=== PATIENT | female | born 2000 | race Two or more races ===

== ENCOUNTER 2024-12-04 14:16 | Inpatient (IN) | payer MEDICAID, SELFPAY ==
[2024-12-04] VITALS (76 sets, daily range): BP systolic 110–131; BP diastolic 60–82; PULSE 76–117; RESP 18–99; TEMP 36.7–36.8; O2SAT 90–100; BMI 27.5
[2024-12-04 15:46] LABS: Basophils % (Auto) 1 % (0-2.5); Eosinophils % (Auto) 0 % (0-10); Hematocrit 32.8 % (36.0-46.0); Hemoglobin 11.6 g/dL (12.0-16.0); Immature Granulocytes % (Auto) 0 % (0-0); Immature Granulocytes Auto 0.03 Thou/mm3 (0.00-0.00); Lymphocytes # (Auto) 1.7 Thou/mm3 (1.0-4.8); Lymphocytes % (Auto) 20 % (10-50); Mean Corpuscular HGB Conc 35.4 g/dl (31.0-37.0); Mean Corpuscular Hemoglobin 29.6 pg (25.0-35.0); Mean Corpuscular Volume 84 fL (80-100); Monocytes # (Auto) 0.5 Thou/mm3 (0.0-0.8); Monocytes % (Auto) 6 % (0-12); Neutrophils # (Auto) 6.1 Thou/mm3 (1.8-7.7); Neutrophils % (Auto) 73 % (37-80); Nucleated Red Blood Cell % 0 /100 WBC (0); Platelet Count 179 Thou/mm3 (140-440); RDW Standard Deviation 39.2 fL (36.4-46.3); Red Blood Count 3.92 Miln/mm3 (4.00-5.20); White Blood Count 8.4 Thou/mm3 (3.6-11.0)
[2024-12-04 16:27] LABS: Syphilis Nonreactive (Nonreactive)
[2024-12-04] MEDS: MISOPROSTOL 50 mCg TABLET PO (16:46)
--- NOTE | 2024-12-04 17:36 | PD.LDHP ---
Documentation for date of: 12/04/24 OB Labor/Induct. HPI History of Present Illness Chief complaint: leakage of fluid 1315 clear : 3 Para: 1 Term pregnancies: 0 pregnancies: 0 Living children: 0 History of Abortions: Spontaneous and Elective: 1 History of Vaginal deliveries: 1 History of sections: No History of : No DONOVAN: 12/16/24 Gestational Age (weeks): 38 Gestational Age (days): 2 History of present illness: Patient presents for loss of fluid, clear, that occurred at 1315 with subsequent leaking. No regular/painful ctx. No vaginal bleeding. Normal movement. No fevers/chills. Comments: Term uncomplicated 05/2023 Received Rhogam at appropriate time interval History of Present Adequate Care: Yes Obstetrical complications: none Labs Maternal Blood Type: B Neg Labs: Negative: RPR, Hepatitis B, HIV and Group Beta Strep Review of Systems Review of Systems Narrative Review of Systems: Review of Systems Systems Reviewed: All systems reviewed, normal except as documented Constitutional Constitutional: Denies body ache(s), Denies chills, Denies fever(s) and Denies headache(s) ENT Ears, Nose, Mouth, and Throat: Denies headache(s) and Denies vertigo Cardiovascular Cardiovascular: Denies chest pain, Denies palpitations, Denies dyspnea and Denies syncope Respiratory Respiratory: Denies cough, Denies dyspnea Gastrointestinal Gastrointestinal: Denies nausea and Denies vomiting Neurologic Neurologic: Denies convulsions, Denies headache(s), Denies other visual disturbances, Denies syncope and Denies vertigo Past Medical History Surgical History SURGICAL: Negative Section OTHER SURGICAL HX: denies Past Medical History Comments PMH COMMENT: Benign PMhx. Meds Home Medications and Allergies Home Medications ?Medication ?Instructions ?Recorded ?Confirmed ?Type prenat.vits,laurie,vag-iapa-fjjpy 1 tab PO QDAY 06/15/23 12/04/24 History Allergies Allergy/AdvReac Type Severity Reaction Status Date / Time No Known Allergies Allergy Verified 12/04/24 15:14 OB Exam Physical Exam Vital signs: Temp Pulse Resp BP Pulse Ox 98.2 F 96 18 114/78 96 12/04/24 16:47 12/04/24 15:17 12/04/24 16:47 12/04/24 15:17 12/04/24 17:34 Narrative: General: well developed, well nourished, no acute distress, conversant Cardiac: normal heart rate Lungs: breathing without distress Abdomen: soft, gravid, non-tender, no rebound or guarding Extremities: no pain with palpation of calves Gross leakage of fluid on vaginal exam in triage per RN Detailed Labor and Delivery Exam Dilation (cm): 1 Effacement (%): 60 Cervix position: posterior station: -3 Consistency: medium Presentation: Vertex Membranes: ruptured Amniotic fluid: clear monitor accelerations: 15x15 monitor decelerations: None intermodal truck driver variability: Moderate (11-25) Contraction frequency (min): irregular OB Results Labs 12/04/24 14:50 Labs: Short CBC 12/04/24 Range/Units 14:50 WBC 8.4 (3.6-11.0) Thou/mm3 Hgb 11.6 L (12.0-16.0) g/dL Hct 32.8 L (36.0-46.0) % Plt Count 179 (140-440) Thou/mm3 OB Assessment & Plan Assessment and Plan (1) PROM (premature rupture of membranes): Status: Acute Assessment and plan: Patient is a 24yo with SIUP at 38&2wk with PROM, clear, 1315 on 12/04. Not in labor. SCE: /-3, posterior. Grossly ruptured. Irregular ctx. Vitals wnl, benign exam. Reassuring assessment. PMhx/ complicated by: Negative maternal blood type, received Rhogam at appropriate time interval SMA testing: at risk to be a carrier Normal NIPT No records from clinic available to review at time of admission (other than labs). Plan: -Admit to L&D -Establish IV, routine labs -CEFM -Regular diet avzz-vs-qlyu, clear liquids in labor -Cytotec 50mcg PO Q4hr until good ctx pattern/progression in labor -Occupational Rehabilitation Aide/consent re: augmentation and -GBS status: negative -Anticipate -Will obtain records when office is open -Safe to proceed (1) PROM (premature rupture of membranes) Qualifiers: PROM gestational age: full term PROM onset of labor timing: unspecified duration between rupture of membranes and onset of labor Qualified Code(s): O42.92 - Full-term premature rupture of membranes, unspecified as to length of time between rupture and onset of labor
[2024-12-04] MEDS: RINGERS LACTATED 1000 ML 1,000 ML 999 ML IV ×2 (19:28→20:30)
[2024-12-04] MEDS: MINERAL OIL 30 ML UDC TOP (20:53)
[2024-12-04] MEDS: OXYTOCIN in NS 20 units 20 UNIT/1,000 ML BAG 999 UNIT IV (20:59)
[2024-12-04] MEDS: BENZOCAINE/BENZETHON (Dermoplast First Aid Spray) 78 GM CAN 1 SPRAY TOP (21:09)
--- NOTE | 2024-12-04 22:03 | PD.LDDELS ---
Data ([facility]) Data Hx Section: No : 3 Para: 1 Term: 1 : 0 : 0 Delivery Data ([facility]) Labor Data ROM Date: 12/04/24 ROM Time: 13:15 Rupture Type: SROM Amniotic Fluid: Clear Delivery Data Labor Onset Stage 1 Date: 12/04/24 Labor Onset Stage 1 Time: 13:15 Labor Onset Stage 2 Date: 12/04/24 Labor Onset Stage 2 Time: 20:44 Delivery Date: 12/04/24 Delivery Time: 20:55 Placenta Delivery Date: 12/04/24 Placenta Delivery Time: 21:00 Delivered by: Katy Cook Delivery nurse: Annmarie Dixon Other staff at delivery: 2nd Nurse Other staff at delivery: Wilda Gomes Delivery Method Delivery: Vaginal Delivery Type: Spontaneous Presentation: Vertex Anesthesia Type Primary Anesthesia: None Secondary Anesthesia: None Placenta Placenta Delivery: Spontaneous EBL Estimated blood loss (ml): 150 Umbilical Cord Umbilical Vessels: 3 Additional Procedures Skylar is a 24yo [id number] s/p uncomplicated at 38&2wk after presenting with PROM, delivering at 2054 on 12/04/2024. On presentation, SCE was 1/60/-2. She received one dose of oral cytotec and progressed to C/C/0 at which point she began pushing. She did not receive an epidural. With good maternal pushing efforts, 's head delivered OA and restituted DUC. Right anterior shoulder delivered easily followed by posterior shoulder and corpus. Infant had spontaneous cry and was vigorous. Apgars 9/9. Infant placed on maternal abdomen where nose/mouth were suctioned and infant dried/stimulated. After approximately 1 minute, cord was clamped x2 and cut by FOB. Cord blood collected for typing. With fundal massage and cord traction, placenta delivered spontaneously and intact with 3 vessel centrally inserted cord. Fundal massage performed and IV pitocin given per protocol with fundus then firm at u-2cm and hemostasis noted. Inspection of perineum and vagina revealed superficial right labial laceration and a very small 1st degree vaginal laceration which were repaired with 2 single sutures of 4-0 vicryl- total reapproximation and hemostasis achieved. All counts correct x2. Mom and were doing well when I left the room. Katy Cook MD Complications Complications: none [place] Data ([facility]) [place] Data Gender: Female Weight Grams: 2865 1 Minute Total: 9 5 Minute Total: 9
[2024-12-04] MEDS: TRANEXAMIC ACID 1,000 MG IVPB 1,000 MG/100 ML BAG 200 MG IV (22:35)
[2024-12-04] MEDS: IBUPROFEN TAB 400 MG TABLET 800 MG PO (23:41)
[2024-12-05] VITALS (7 sets, daily range): BP systolic 104–130; BP diastolic 64–86; PULSE 66–82; RESP 16–20; TEMP 36.6–37.1; O2SAT 95–99
[2024-12-05 06:23] LABS: Basophils % (Auto) 0 % (0-2.5); Eosinophils % (Auto) 0 % (0-10); Hematocrit 33.3 % (36.0-46.0); Hemoglobin 11.6 g/dL (12.0-16.0); Immature Granulocytes % (Auto) 0 % (0-0); Immature Granulocytes Auto 0.04 Thou/mm3 (0.00-0.00); Lymphocytes # (Auto) 1.8 Thou/mm3 (1.0-4.8); Lymphocytes % (Auto) 14 % (10-50); Mean Corpuscular HGB Conc 34.8 g/dl (31.0-37.0); Mean Corpuscular Hemoglobin 29.4 pg (25.0-35.0); Mean Corpuscular Volume 84 fL (80-100); Monocytes # (Auto) 0.7 Thou/mm3 (0.0-0.8); Monocytes % (Auto) 6 % (0-12); Neutrophils # (Auto) 9.8 Thou/mm3 (1.8-7.7); Neutrophils % (Auto) 80 % (37-80); Nucleated Red Blood Cell % 0 /100 WBC (0); Platelet Count 161 Thou/mm3 (140-440); RDW Standard Deviation 38.9 fL (36.4-46.3); Red Blood Count 3.95 Miln/mm3 (4.00-5.20); White Blood Count 12.4 Thou/mm3 (3.6-11.0)
[2024-12-05] MEDS: DOCUSATE SOD 100 MG CAPSULE PO (08:49)
[2024-12-05] MEDS: PRENATAL VITAMIN/FE FUM/FA TABLET 1 TAB PO (08:49)
--- NOTE | 2024-12-05 11:39 | PD.LDDS ---
DS: Providers Provider Date of admission: 12/04/24 14:55 Primary care physician: Alan Kumar MD Admitting Provider: Katy Cook MD Attending Provider on Admission: Katy Cook MD Consults: 12/04/24 22:01 Referral Routine Comment: Attending Provider on DC: Katy Cook MD Discharging Provider: Katy Cook MD DS: Diagnosis Discharge Diagnosis (1) PROM (premature rupture of membranes): Status: Acute (2) care and examination immediately after delivery: Status: Acute Problem List Completed Was Problem List Reviewed/Reconciled?: Yes Summary/Hosp Course Brief History: Patient presents for loss of fluid, clear, that occurred at 1315 with subsequent leaking. No regular/painful ctx. No vaginal bleeding. Normal movement. No fevers/chills. She is doing well PPD1 s/p uncomplicated . She has had an uncomplicated course, meeting all milestones and feels ready for discharge home. She is ambulating without lightheadedness, tolerating regular diet no n/v, spontaneously voiding without issue. She has no chest pain or shortness of breath. No fevers or chills. Minimal, appropriate discomfort. Vitals normal, benign exam. Hemodynamically stable with no evidence of infection. PP Hgb 11.6. Status at Discharge Functional status at discharge: independent ambulation Overall status at discharge: patient is back to baseline Time Spent with Patient Time attestation: Total time spent providing and/or coordinating discharge services: Exam Vital Signs Temp Pulse Resp BP Pulse Ox O2 Del Method 98.1 F 80 17 107/69 97 Room Air 12/05/24 07:50 12/05/24 07:50 12/05/24 07:50 12/05/24 07:50 12/05/24 07:50 12/05/24 07:50 Narrative Exam General: well developed, well nourished, no acute distress, conversant Cardiac: normal heart rate Lungs: breathing without distress Abdomen: soft, post-gravid, non-tender, no rebound or guarding, Fundus firm at u-3cm. Extremities: no pain with palpation of calves, trace edema of BLE Discharge Plan Plan Patient Disposition: HOME (Self Care) Patient condition on transfer: Stable Prescriptions/Referrals Prescriptions/Med Rec: New docusate sodium 100 mg Capsule 100 mg PO BID 5 Days Qty: 10 0RF ibuprofen 800 mg tablet 800 mg PO Q8H PRN (Reason: See Comments) 10 Days Qty: 30 0RF Continued prenat.vits,laurie,mxr-ubmg-shcsv Tablet 1 tab PO QDAY Referrals: Alan Kumar MD [Primary Care Provider] - Patient/Caregiver Discharge Instructions Discharge Activity: activity as tolerated Other Discharge Activity Instructions:: vaginal rest and no heavy lifting more than 10 pounds for 6 weeks. Other Discharge Diet Instructions: Regular Education Materials: After a Vaginal Print Language: Kiswahili Activity Restrictions/Additional Instructions: Follow up in 4 weeks for visit, call office to schedule appointment Stand Alone Forms: [employer] Info., Patient Portal Info Letter Discharge Order Discharge Orders: Discharge (Routine); Ordered 12/05/24 Ordered By: Katy Cook Planned Discharge Date 12/05/24 (1) PROM (premature rupture of membranes) Qualifiers: PROM onset of labor timing: unspecified duration between rupture of membranes and onset of labor PROM gestational age: full term Qualified Code(s): O42.92 - Full-term premature rupture of membranes, unspecified as to length of time between rupture and onset of labor
[2024-12-05] MEDS: IBUPROFEN TAB 400 MG TABLET 800 MG PO (16:05)
== END 2024-12-05 20:57 | disposition home or self-care (01) | DRG 560 ==
LOC: S4SX 21:12 → S4NX 22:50
PROVIDERS: Admitting Provider Obstetrics & Gynecology; PCP Family Medicine; Visit Provider Obstetrics & Gynecology
DX: O42.02 Full-term premature rupture of membranes, onset of labor within 24 hours of rupture (principal); O70.0 First degree perineal laceration during delivery; Z3A.38 38 weeks gestation of pregnancy; Z37.0 Single live birth
CPT/HCPCS: 36415; 59025; 59409; 84112; 85025; 85461; 86780; 86850; 86870; 86900; 86901; 94762; A9270; J2590; J2790; J3490; J7120

== ENCOUNTER 2024-12-11 20:16 | Inpatient (IN) | payer MEDICAID, SELFPAY ==
[2024-12-11 20:17] VITALS: BMI 35.2
--- NOTE | 2024-12-11 20:30 | EKG_ITS ---
[facility] Test Date: 2024-12-11 Pat Name: FAROOQ ANGUIANO Department: Room: - Gender: Female Hog Cutter: : 2000 Requested By: Sarah Black Order Number: [id number] Reading MD: Sarah Black Measurements Intervals [place] Rate: 71 P: 30 ME: 144 QRS: -7 QRSD: 77 T: 15 QT: 351 QTc: 382 Interpretive Statements SINUS RHYTHM POSSIBLE ANTERIOR MYOCARDIAL INFARCTION , PROBABLY OLD [30 ms Q WAVE IN V3/V4, OR R < 0.2 mV IN V4] No previous ECG available for comparison /store/S0/[id number]/ecg/[id number].pdf
--- NOTE | 2024-12-11 20:30 | XR_ITS ---
Examination: AP chest single view Technique one AP portable upright chest single view Exam date and time: December 11, 20242034 hrs. Indications: Onset chest pain today. The Findings: Normal heart size The lungs are clear. The osseous structures are intact Impression: No active disease
[2024-12-11 20:34] VITALS: BP 134/107; PULSE 69; RESP 18; TEMP 37.1; O2SAT 97
--- NOTE | 2024-12-11 20:35 | PD.EDPREG ---
ED OB Contraction Preg RMI/HPI General Chief complaint: OB/Uterine Contractions Stated complaint: 7 days post , abdominal pain, chills, Time Seen by Provider: 12/11/24 20:21 Source: patient Arrival date/time: 12/11/24 20:16 Mode of arrival: ambulatory Limitations: no limitations RME / HPI RME / HPI Narrative: DR NEVAREZ MAIN ED EVALUATION: 24-year-old female who presents to the emergency department seven days after giving . She reports experiencing chills, pelvic cramping pain, and vaginal bleeding. States the vaginal bleeding is similar to a heavy period. Denies vaginal discharge or malodor. The patient denies having any headaches. Related Data Home Medications ?Medication ?Instructions ?Recorded ?Confirmed prenat.vits,laurie,mip-bhlr-yfivi 1 tab PO QDAY 06/15/23 12/04/24 Previous Rx's ?Medication ?Instructions ?Recorded ibuprofen 800 mg tablet 800 mg PO Q8H PRN See Comments 10 12/05/24 days #30 tabs Allergies Allergy/AdvReac Type Severity Reaction Status Date / Time No Known Allergies Allergy Verified 12/04/24 15:14 Review of Systems Review of Systems Systems Reviewed: All systems reviewed, normal except as documented Past Medical History Past Medical History NEUROLOGIC: Negative Neurological Disorders or Seizures CARDIAC: Negative Cardiac Disorders or Congestive Heart Failure RESPIRATORY: Negative Chronic Obstructive Pulmonary Disease (COPD) or Asthma GASTROINTESTINAL: Negative Gastrointestinal Disorders GENITOURINARY: Negative Genitourinary Disorders or Renal Disease MUSCULOSKELETAL: Negative Musculoskeletal Disorders or Scoliosis ENDOCRINE: Negative Endocrine Disorders, Diabetes Mellitus Type 1 or Diabetes Mellitus Type 2 HEMATOLOGIC: Negative Blood Disorders OTHER HISTORY: Negative Hospitalization, Autoimmune Disease, Blood Transfusions, Blood Transfusion Reaction, Anesthesia Reactions, Organ Transplant, MRSA or Cancer Family History FAMILY HISTORY: Negative Family Psychiatric Problems, Family Respiratory Disorders, Family Cardiac Disorders, Family Gastrointestinal Problems, Family Cancer, Family Surgery or Family Anesthesia Reaction Surgical History SURGICAL: Negative Cardiac Surgery, Endocrine Surgery, Ear Surgery, Abdominal Surgery, Nephrectomy, Joint Replacement, Neurologic Surgery, Brain Shunt, Mastectomy, Section or Organ Transplant Social History SMOKING STATUS: Never smoker SECOND HAND EXPOSURE: No ED Exam Narrative Physical exam: GENERAL APPEARANCE: alert and oriented x 4, well-developed, well-nourished, no acute distress VITALS: All vitals were reviewed and the pulse ox is 97% on room air, which is normal according to my interpretation. HEENT: Normocephalic, atraumatic; pupils equal, round, reactive to light; EOMI; mucous membranes pink, moist; oropharynx clear NECK: Supple LUNGS: CTABL; no wheezes, no rales, no rhonchi HEART: Regular rate, regular rhythm; normal S1, S2; no murmurs ABDOMEN: non distended; normal BS; soft, mild tenderness, no guarding, no rebound; no masses, no organomegaly, no hernia BACK: no CVA tenderness EXTREMITIES: atraumatic; no edema NEUROLOGIC: awake; alert and oriented x4; cranial nerves II-XII grossly intact; no focal sensory or motor deficits PSYCHIATRIC: appropriate mood and affect SKIN: warm, dry, normal color; no rashes General Limitations: Present no limitations Course Course Course Narrative: 2020 Sepsis alert initiated. Orders made at this time are congruent with ED Adult Sepsis Order List. Re-evaluation is to be completed. 2053 Sepsis reassessment performed consisting of lab review, vitals, physical exam including auscultation of heart, lungs, and visual evaluation of capillary refills, mucosal membranes and extremities. CXR is ordered for determining etiology of chest pain. Quality Measures Current suspected stage: sepsis Possible source: GI tract/intra-abdominal Blood cultures ordered: yes Antibiotic ordered: Yes Pertinent labs: 12/11/24 20:41 Lactic Acid 1.0 mMol/L (0.4-2.0) Procalcitonin < 0.04 ng/ml (0.0-0.49) sepsis Orders Category Date Time Status Bedside COVID-19 Antigen Test NOW Care 12/11/24 20:32 Active Bedside Influenza A&B Antigen Test NOW Care 12/11/24 20:32 Completed Invoice Clerk NOW Care 12/11/24 20:30 Active EKG (ED ONLY) *Do not use* NOW Care 12/11/24 20:30 Completed EKG (ED Only) Stat Exams 12/11/24 20:30 Draft US pelvic comp SEPSIS PROTOCOL Stat Exams 12/11/24 21:01 Completed XR chest 1V portable Stat Exams 12/11/24 20:30 Completed Blood Culture (Lab) Stat Lab 12/11/24 20:41 Received CBC Stat Lab 12/11/24 20:41 Completed Comprehensive Metabolic Panel Stat Lab 12/11/24 20:41 Completed Lactate (Lactic Acid) Stat Lab 12/11/24 20:41 Completed Lipase Stat Lab 12/11/24 20:41 Completed Magnesium Stat Lab 12/11/24 20:41 Completed Partial Thromboplastin Time Stat Lab 12/11/24 20:41 Completed Procalcitonin Stat Lab 12/11/24 20:41 Completed Prothrombin Time with INR Stat Lab 12/11/24 20:41 Completed Troponin I Stat Lab 12/11/24 20:41 Completed Urinalysis Stat Lab 12/11/24 21:05 Completed Urine Culture Stat Lab 12/11/24 21:05 Received Ampicillin/Sulbac Inj [Unasyn Inj] 3 gm Med 12/11/24 21:40 Discontinued Sodium Chloride 0.9% (Pop) [NS 0.9% mini bag] 100 ml IV X1 Vital Signs Vital signs: Vital Signs Temperature 98.8 F 12/11/24 20:34 Pulse Rate 69 12/11/24 20:34 Respiratory Rate 18 12/11/24 20:34 Blood Pressure 134/107 H 12/11/24 20:34 Pulse Oximetry (%) 97 12/11/24 20:34 Oxygen Delivery Method Room Air 12/11/24 20:34 Procedures -ED Procedure Comment EKG manual reading, 12/11/242047, my interpretation: sinus rhythm, rate: 71 bpm, no ST elevation, no acute ischemic changes, interpreted as normal OB/Uterine Contractions MDM Narrative MDM Narrative:: Scribe Attestation: I, Katarina Hdez, am scribing for and in the presence of Dr. Nevarez. Provider Notation: Although this document has been carefully reviewed, there may still be some phonetic and other typographical errors. These errors are purely grammatical due to imperfections in the software program and should not be construed in any way to compromise the substance of the patient's medical care during this visit. Patient data External records reviewed:: [facility] previous records Clinical information provided by:: patient Social determinants that could affect healthcare access:: none Patient has the following chronic illnesses:: see PMH How is presenting disease/condition affected by chronic disease/condition?: uneffected by Evaluation data The following diagnostics were reviewed and interpreted by me:: lab results, radiology exam(s) and EKG tracing(s) Lab and/or radiology exams considered but not ordered:: na Interpretation Summary: Examination: AP chest single view Technique one AP portable upright chest single view Exam date and time: December 11, 2024 2035 hrs. Indications: Onset chest pain today. The Findings: Normal heart size The lungs are clear. The osseous structures are intact Impression: No active disease Dictated By: Royer Fry MD ======= Examination: Pelvic sonography complete Technique: Grayscale sonographic images pelvis Exam date and time: December 11, 2024 at 0946 hrs. Indications: Pelvic pain beginning one week, 7 days Findings: Uterus 13.3 x 8.2 x 9.3 cm Thickened endometrium with fluid in cervix, retained products of conception appearance Ovary on the right obscured by bowel gas Left ovary 2.0 cm arterial flow Impression: Positive for retained products of conception Dictated By: Royer Fry MD Medications / Prescriptions Medications or Prescriptions considered but not ordered:: na Medication administrations:: Medication Administration History Acetaminophen (Acetaminophen 325 Mg Tablet) 650 mg PO Q6H PRN PRN Reason: Fever > 100.4 Stop: 01/10/25 23:44 Ampicillin Sodium/Sulbactam (Sodium 3 gm/ Sodium Chloride) 100 mls @ 200 mls/hr IV Q6H FOR[facility], 1928–1983 Stop: 12/19/24 05:59 Oxytocin/Sodium Chloride (Pitocin 20 Units In Ns) 20 unit in 1,000 mls @ 125 mls/hr IV .Q8H FOR[facility], 1928–1983 Stop: 01/11/25 04:14 Last Admin: 12/12/24 04:18 Dose: 125 mls/hr Documented By: AM Co-signed By: ANITA Ketorolac Tromethamine (Ketorolac Inj 30 Mg/Ml Vial) 30 mg IVP Q6H PRN PRN Reason: PAIN SCALE 4-6 (Moderate Stop: 12/16/24 23:44 Ondansetron HCl (Ondansetron Inj 2 Mg/Ml Inj 2 Ml) 4 mg IV Q6H PRN; Protocol PRN Reason: NAUSEA OR VOMITING Stop: 01/10/25 23:46 Discontinued Medications Ampicillin Sodium/Sulbactam (Sodium 3 gm/ Sodium Chloride) 100 mls @ 200 mls/hr IV X1 ONE Stop: 12/11/24 21:41 Last Infusion: 12/11/24 22:49 Dose: Infused Documented By: Admin: 12/11/24 22:19 Dose: 200 mls/hr Documented By: RODO Oxytocin (Pitocin 20 Units In Lr) 20 unit in 1,000 mls @ 125 mls/hr IV .Q8H [facility], 1928–1983 Stop: 01/10/25 23:55 as above Consultations Consultation(s) initiated? (list below): Yes Consultation #1 (Physician, Specialty, Details): OB on-call, hospitalist, made aware of the patient?s HPI, PMHx, lab and/or radiology results. Treatment plan was discussed. Accepts patient for admission. Time: 23:22 Diagnosis OB Contractions Differential Diagnosis: normal delivery at term, hemorrhage and other (Endometritis) Most likely diagnosis given after review of the tests above:: Retained products of conception Admission Indicated Admission indicated?: indicated Explain why admission is indicated or not indicated:: retained products of conception Admission Request Was there a request for admission?: Yes Admission Attestation Admission request attestation: Discussed case with [] from Hospitalist service regarding admission. Discussed patients ED course, exam findings, labs, and radiology results. The Hospitalist [agrees,declines] to accept the patient for admission. Disposition Plan Disposition Plan: Admit Critical Care Time Critical Care Time Critical Care Time: Yes Total Critical Care Time (min.): 35 Attestation: The high probability of sudden, clinically significant deterioration in the patient?s condition required the highest level of my preparedness to intervene urgently. ? The services I provided to this patient were to treat and/or prevent clinically significant deterioration. Services included the following: chart data review, reviewing nursing notes and/or old charts, documentation time, reimbursement consultant collaboration regarding findings and treatment options, medication orders and management, direct patient care, vital sign assessments and ordering, interpreting and reviewing diagnostic studies and lab tests. ? Aggregate critical care time includes only time during which I was engaged in work directly related to the patient?s care, as described above, whether at bedside or elsewhere in the Emergency Department. It did not include time spent performing other reported procedures or the services of residents, students, nurses or physician assistants. Discharge Plan Plan Patient Disposition: Admit Acute Care w/in Hospital Problem List Clinical Impression: Retained products of conception, , care and examination immediately after delivery, Sepsis
[2024-12-11 20:42] VITALS: PULSE 74
[2024-12-11 20:49] VITALS: BP 153/102; PULSE 72; RESP 19; TEMP 37.1; O2SAT 97
--- NOTE | 2024-12-11 20:55 | PC.NURSE ---
Charge nurse Nikki from OB in to assess pt at this time. Goyo Jordan also on phone with OB DR Rocha making him aware pt is in Er. Rn provided pt with plan of care orders from Er physician Brandon. Er will update provider if needed with results.
--- NOTE | 2024-12-11 21:01 | XR_ITS ---
Examination: Pelvic sonography complete Technique: Grayscale sonographic images pelvis Exam date and time: December 11, 2024 at 0946 hrs. Indications: Pelvic pain beginning one week, 7 days Findings: Uterus 13.3 x 8.2 x 9.3 cm Thickened endometrium with fluid in cervix, retained products of conception appearance Ovary on the right obscured by bowel gas Left ovary 2.0 cm arterial flow Impression: Positive for retained products of conception
[2024-12-11 21:03] LABS: Basophils # (Auto) 0.1 Thou/mm3 (0.0-0.2); Basophils % (Auto) 1 % (0-2.5); Eosinophils # (Auto) 0.1 Thou/mm3 (0.0-0.5); Eosinophils % (Auto) 1 % (0-10); Hematocrit 41.5 % (36.0-46.0); Hemoglobin 14.4 g/dL (12.0-16.0); Immature Granulocytes % (Auto) 0 % (0-0); Immature Granulocytes Auto 0.01 Thou/mm3 (0.00-0.00); Lymphocytes # (Auto) 3.1 Thou/mm3 (1.0-4.8); Lymphocytes % (Auto) 42 % (10-50); Mean Corpuscular HGB Conc 34.7 g/dl (31.0-37.0); Mean Corpuscular Hemoglobin 29.3 pg (25.0-35.0); Mean Corpuscular Volume 84 fL (80-100); Monocytes # (Auto) 0.4 Thou/mm3 (0.0-0.8); Monocytes % (Auto) 6 % (0-12); Neutrophils # (Auto) 3.7 Thou/mm3 (1.8-7.7); Neutrophils % (Auto) 50 % (37-80); Nucleated Red Blood Cell % 0 /100 WBC (0); Platelet Count 213 Thou/mm3 (140-440); RDW Standard Deviation 39.9 fL (36.4-46.3); Red Blood Count 4.92 Miln/mm3 (4.00-5.20); White Blood Count 7.4 Thou/mm3 (3.6-11.0)
[2024-12-11 21:11] LABS: Partial Thromboplastin Time 31.3 Seconds (22.0-36.0); Prothrombin Time 10.7 Seconds (9.0-12.2)
[2024-12-11 21:15] LABS: Collection Type, Urine Clean Catch
[2024-12-11 21:19] LABS: Alanine Aminotransferase 11 U/L (10-49); Albumin, Serum 4.8 gm/dL (3.5-5.0); Albumin/Globulin Ratio 1.8 (1.2-2.2); Alkaline Phosphatase 96 U/L (46-116); Anion Gap 9 (7-16); Aspartate Amino Transferase 16 U/L (0-34); BUN/Creatinine Ratio 13 Ratio (12-20); Bilirubin,Total 0.4 mg/dL (0.3-1.2); Blood Urea Nitrogen 8 mg/dL (9-23); Calcium 9.6 mg/dL (8.3-10.6); Calcium (Corrected) 9.6 mg/dL (8.5-10.1); Carbon Dioxide 24.4 mMol/L (20.0-31.0); Chloride 107 mMol/L (98-107); Creatinine (Component) 0.6 mg/dL (0.6-1.3); Estimated Creatinine Clearance 134.5 mL/min (>60); Globulin 2.7 gm/dL (2.3-3.5); Glucose 89 mg/dL (74-106); Lipase 44 U/L (12-53); Magnesium 2.2 mg/dL (1.6-2.6); Osmolality,Calculated 276 (275-295); Potassium 3.8 mMol/L (3.4-5.1); Procalcitonin < 0.04 ng/ml (0.0-0.49); Sodium 140 mMol/L (136-145); Total Protein 7.5 gm/dL (5.7-8.2); Troponin I < 0.002 ng/mL (0.0-0.045); eGFR > 60 See Note
[2024-12-11 21:57] LABS: Bacteria,Urine Rare; Bilirubin,Urine Negative (Negative); Blood,Urine 3+ (Negative); Clarity,Urine Clear (Clear/Hazy); Color,Urine Colorless (Lt Yel-Yel); Glucose, Urine Negative (Negative); Ketones,Urine Negative (Negative); Leukocyte Esterase,Urine Positive (Negative); Nitrite,Urine Negative (Negative); PH,Urine 6.5 (5.0-7.0); Protein,Urine Negative (Neg - Trace); RBC,Urine 2 /hpf (0-3); Specific Gravity,Urine 1.006 (1.001-1.035); Squamous Epithelial Cell,Urine 1 /hpf (0-5); Urobilinogen,Urine Negative mg/dL (0.0-1.0); WBC,Urine 17 /hpf (0-5)
[2024-12-11] MEDS: AMPICILLIN/SULBAC INJ 3 GM in SODIUM CHLORIDE 0.9% (POP) 100 ML IV (22:19)
[2024-12-11 23:17] VITALS: BP 135/83; PULSE 71; RESP 19; TEMP 36.7; O2SAT 100
--- NOTE | 2024-12-11 23:25 | PC.NURSE ---
Overhead call for maternal sepsis in ER. Patient ambulated in room with no acute distress. Patient ID x2 name and 2000 . Patient changed into gown. 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 Patient states she came to the hospital for cramping and chills she had at home. Patient states takes Ibuprofen 800 mg, but states had not taken any today. She takes it when the pain gets bad . She endorses a previous sepsis in the past. 24 years old with one SAB. delivering at 38 w 2d on 12/04/2024 at 2054 with first degree labial laceration. The stitches are intact. Brownish red mild blood noted on the halle-pad. Patient states she has had no clots. Patient states she changed her last past between 5 and 6 . There is no abd tenderness upon palpation. denies RUQ pain, visual changes, N/V/D BERNABE, vaginal discharge, or pain with urination. BS are CTAB with a RR of 20. No respiratory distress at this time. breathing WNL and unlabored. states a nonproductive cough . 2033 Dr Morel at bs. Patient denies to MD mucous, or any fowl odors. LICENSED SALES PRODUCER at bs placing IV 20 g to R AC. blood and blood cultures drawn and sent to lab. 2042 153/102 76 SR on ER monitor, 97% on RA. no acute distress. 2048 T/c Dr Rocha no answer. 2050 t/c to Dr Rocha. SBAR given to MD on information above. Temp retaken 98.7. Dr Rocha request Dr Sarah Morel's number to call her. No new orders given. Will follow up after labs are back or MD request further interventions.
[2024-12-12] VITALS (8 sets, daily range): BP systolic 91–133; BP diastolic 54–91; PULSE 59–70; RESP 16–20; TEMP 36.2–37.1; O2SAT 96–98; BMI 23.4
[2024-12-12] MEDS: OXYTOCIN in NS 20 units 20 UNIT/1,000 ML BAG 125 UNIT IV (04:18)
[2024-12-12] MEDS: AMPICILLIN/SULBAC INJ 3 GM in SODIUM CHLORIDE 0.9% (POP) 100 ML IV (06:10)
--- NOTE | 2024-12-12 08:50 | PC.NURSE ---
Dr. Rocha at bedside poc explained to pt and , risks and benefits of procedure explained procedure and blood consents sign. All questions and concerns addressed by MD. Per MD pt to go home after recovery if stable.
--- NOTE | 2024-12-12 08:58 | ESHP_ITS ---
Documentation for date of: 12/12/24 PODIATRIC TECHNICIAN - HPI History of Present Illness Reason for admission: vaginal bleeding and pelvic pain History of present illness: Ms. ANGUIANO is a 24 year old female s/p on 12/04/2024 and was in ED with Chills and pelvic pain and has Retained POC on US Review of Systems Review of Systems Systems Reviewed: All systems reviewed, normal except as documented Past Medical History Family History OTHER FAMILY HX: no h/o congenital or genetic diseases Surgical History OTHER SURGICAL HX: none Social History SOCIAL: negative Past Medical History Comments PMH COMMENT: no h/o bleeding disorder or hypertension or Diabetes Meds Home Medications and Allergies Home Medications ?Medication ?Instructions ?Recorded ?Confirmed ?Type prenat.vits,laurie,tat-ubci-cszaj 1 tab PO QDAY 06/15/23 12/04/24 History Allergies Allergy/AdvReac Type Severity Reaction Status Date / Time No Known Allergies Allergy Verified 12/04/24 15:14 Exam - PODIATRIC TECHNICIAN Vital Signs Temp Pulse Resp BP Pulse Ox O2 Del Method 98.4 F 60 16 111/75 96 Room Air 12/12/24 04:45 12/12/24 04:45 12/12/24 04:45 12/12/24 04:45 12/12/24 04:45 12/12/24 04:45 Narrative Exam pelvic exam deferred to OR Constitutional Constitutional: no acute distress Detailed Eye Exam Visual acuity: normal vision Routine Neck Exam Neck: Present supple and full ROM Routine Respiratory Exam Respiratory: Present chest non-tender, lungs clear, normal breath sounds, no resp distress and CTA bilaterally Routine Cardiovascular Exam Cardiovascular: Present RRR Routine Abdominal Exam Abdominal: Present soft and normoactive bowel sounds Comments: no tenderness to palpation , non distended Routine Exam Comments: deferred to OR Routine Extremities Exam Extremities: Present full ROM and pulses intact Routine Back/Spine/Pelvis Exam Back/Spine: Present full ROM Routine Skin Exam Skin: Present intact and normal turgor Routine Neurological Exam Neurological: Present alert, oriented X3, CN II-XII intact, normal reflexes and vision grossly intact Routine Psychiatric Exam Psychiatric: Present normal affect, normal thought process, cooperative, good insight and good judgment PODIATRIC TECHNICIAN - Results Labs 12/11/24 20:41 12/11/24 20:41 Labs: Short CBC 12/11/24 Range/Units 20:41 WBC 7.4 D (3.6-11.0) Thou/mm3 Hgb 14.4 D (12.0-16.0) g/dL Hct 41.5 (36.0-46.0) % Plt Count 213 D (140-440) Thou/mm3 BMP 12/11/24 20:41 Sodium 140 Potassium 3.8 Chloride 107 Carbon Dioxide 24.4 BUN 8 L Creatinine 0.6 Glucose 89 Calcium 9.6 Cardiac Enzymes 12/11/24 Range/Units 20:41 Troponin I < 0.002 (0.0-0.045) ng/mL Liver Function 12/11/24 Range/Units 20:41 Total Bilirubin 0.4 (0.3-1.2) mg/dL AST 16 (0-34) U/L ALT 11 (10-49) U/L Alkaline Phosphatase 96 (46-116) U/L Albumin 4.8 (3.5-5.0) gm/dL Urine 12/11/24 Range/Units 21:05 Urine Color Colorless A (Lt Yel-Yel) Urine Clarity Clear (Clear/Hazy) Urine pH 6.5 (5.0-7.0) Ur Specific [place] 1.006 (1.001-1.035) Urine Protein Negative (Neg - Trace) Urine Glucose (UA) Negative (Negative) Imaging and Cardiology pelvic US : Additional comments: retained POC Assessment and Plan Assessment and plan (1) Retained products of conception, : Status: Acute Additional Assessment & Plan Additional Plan: Plan D&C in OR , Risks and benefits and options discussed with patient and spouse . Risks of infection and bleeding and possible uterine perforation and possible risk of injury to bowel, urinary Bladder, ureter , tubes , ovaries , other pelvic organs and remote possibility of blood transfusion and associated risks and benefits discussed. All questions answered. Post op pain management and follow up and ED precautions all discussed . All questions answered. Quality Measures Quality Measures sepsis Current suspected stage: ruled out Possible source: GI tract/intra- abdominal Blood cultures ordered: yes Antibiotic ordered: Yes
--- NOTE | 2024-12-12 09:00 | PC.NURSE ---
Pt taken to main OR for scheduled Dilation and Curretage procedure via gurney by Dirk FLWOERS, followed.
--- NOTE | 2024-12-12 09:39 | ESOP_ITS ---
Operative Note - DIRECTOR OF STRATEGIC COMMUNICATIONS Procedure Date of procedure: 12/12/24 Procedure Performed: Suction Dilation and curettage Indication: , retained products of conception Pre-Op diagnosis: retained products of conception Post-Op diagnosis: same Anesthesia type: General Procedure description: After written informed consent patient was taken to the operating room, she was prepped and draped in the usual sterile fashion after general anesthesia. She was in dorsal lithotomy position . Timeout was done. Bladder was straight catheterized, patient is already on Unasyn for surgical site infection prophylaxis. Pelvic exam revealed, cervix dilated 1.5 cm, products of conception felt inside in the uterus and cervix. Self-retaining speculum was placed in the posterior fornix, anterior lip of the cervix was held with an Allis clamp, #10 plastic cannula was used and placed inside the uterus after measuring the length of the uterocervical canal with the uterine sound at 16 cm. Then suction was used and products of conception were removed, gritty sensation felt all around the endometrium, check uterine curettage done with the endometrial curette gently, procedure then complete. Instrument and sponge count was correct. Specimen was sent for histopathology. Patient tolerated the procedure well and was sent to PACU in stable condition. Patient received IV Pitocin. Uterus is firm and size is now 14 cm. Estimated blood loss (ml): 80 Findings: cervical os open at 1.5 cm and retained POC felt Complications: none Narrative: see procedure Surgical staff Operation Date: 12/12/24 09:15 <No data on this case meets the specified criteria> Diagnosis Discharge Diagnosis (1) Retained products of conception, : Status: Acute Problem details: procedure Suction D&C Problem List Completed Was Problem List Reviewed/Reconciled?: Yes
--- NOTE | 2024-12-12 09:41 | SUR.PHASEI ---
Arrived to recovery bay1. Resting with eyes closed. No s/o distress or discomfort. Report received from Dirk FLOWERS. Penny pad with minimal red drainage noted.
--- NOTE | 2024-12-12 09:50 | SUR.PHASEI ---
Awake, alert, responding to questions and commands appropriately. Conversing with Xin RN. Tolerating ice chips PO. No c/o pain or discomfort. No s/o distress. Penny pad remains with minimal red drainage.
--- NOTE | 2024-12-12 10:15 | SUR.PHASEI ---
Taken to room 463 via gurney by Xin FLOWERS. Resting with eyes open. No c/o distress or discomfort. Tolerated ice chips PO. Responding to questions and commands appropriately. Penny pad changed, minimal red drainage noted.
== END 2024-12-12 11:10 | disposition home or self-care (01) | DRG 548 ==
LOC: SERX 23:28 → SERHOLD 12-12 00:51 → S4NX 12-12 02:19
PROVIDERS: Admitting Provider Obstetrics & Gynecology; Emergency Provider Emergency Medicine; Visit Provider Obstetrics & Gynecology
PROC: 10D17ZZ Extraction of Products of Conception, Retained, Via Natural or Artificial Opening (ICD-10-PCS; CPT 58120; principal; 2024-12-12 09:00)
DX: O72.2 Delayed and secondary postpartum hemorrhage (principal)
CPT/HCPCS: 36415; 71045; 76856; 80053; 81001; 83605; 83690; 83735; 84145; 84484; 85025; 85610; 85730; 87040; 87081; 87086; 87400; 87811; J0295; J2590; J2704; J3010